=== PATIENT | female | born 1960 | race Caucasian/White ===

== ENCOUNTER 2022-07-13 16:35 | Emergency (ER) | payer BC ==
[~2022-07-13] VITALS: Ht 149.9 cm; Wt 54.0 kg
[2022-07-13 16:43] VITALS: BP 143/83
[2022-07-13] MEDS ORDERED: ONDANSETRON HCL 4MG/2ML INJ IV STA (22:06)
[2022-07-13] MEDS ORDERED: MORPHINE SULFATE 4 MG/ML CPJ (NOT FOR IM USE) IV STA (22:06)
[2022-07-13 23:02] LABS: BASOPHILS % 0.7 % (0.0-2.0); EOSINOPHILS % 4.3 % (0.0-5.0); HEMATOCRIT. 41.7 % (36.0-48.0); LYMPHOCYTES % 36.9 % (20.0-50.0); MEAN CORPUSCULAR HEMOGLOBIN 29.4 pg (28.0-32.0); MEAN CORPUSCULAR VOLUME 87.5 fL (81.0-99.0); MEAN PLATELET VOLUME 7.9 fl (7.4-10.4); MONOCYTES % 11.9 % (2.0-8.0); NEUTROPHILS % 46.2 % (40.0-76.0); PLATELET 305 x1000/uL (130-400); RED BLOOD CELL COUNT 4.76 mill/uL (4.2-5.4); RED CELL DISTRIBUTION WIDTH 14.1 % (11.6-14.6)
[2022-07-13 23:10] LABS: CHLORIDE 109 mEq/L (98-107)
[2022-07-13 23:11] LABS: PROTHROMBIN TIME 10.3 sec (9.6-11.0)
[2022-07-13 23:11] LABS: CLARITY URINE CLEAR (CLEAR); COLOR URINE YELLOW (YELLOW); KETONES URINE NEGATIVE (NEGATIVE); LEUKOCYTE ESTERASE URINE TRACE (NEGATIVE); NITRITE URINE NEGATIVE (NEGATIVE); OCCULT BLOOD URINE NEGATIVE (NEGATIVE); PROTEIN URINE NEGATIVE (NEGATIVE); SPECIFIC GRAVITY URINE 1.023 (1.005-1.030)
== END 2022-07-14 02:15 | disposition home or self-care (01) ==
LOC: ER 16:35
DX: R10.31 Right lower quadrant pain (principal); Z98.890 Other specified postprocedural states
CPT/HCPCS: 36415; 74176; 80053; 81003; 83690; 85025; 85610; 86850; 86900; 86901; 96374; 96375; 99285; J2270; J2405; Z7610